=== PATIENT | male | born 1980 | race Caucasian/White ===

== ENCOUNTER → 2020-07-16 15:25 | Outpatient (CLI) | payer OTHER, SELFPAY ==
--- NOTE | 2020-07-16 15:00 | DI.RAD_ITS ---
EXAM: XR HUMERUS LT CLINICAL HISTORY: left biceps tendon rupture TECHNIQUE: COMPARISON: No exams were available for comparison FINDINGS: Two views were obtained. 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 No other significant bony or soft tissue abnormality seen. IMPRESSION: RADIATION DOSE DELIVERED: Total DLP
== END ==
PROVIDERS: Visit Provider Physician Assistant Surgical
DX: D16.02 Benign neoplasm of scapula and long bones of left upper limb (principal); S46.212A Strain of muscle, fascia and tendon of other parts of biceps, left arm, initial encounter
CPT/HCPCS: 73060

== ENCOUNTER 2020-07-17 09:02 | Outpatient (CLI) | payer OTHER, SELFPAY ==
[2020-07-20 12:10] LABS: COVID-19 RT-PCR Result NEGATIVE (Negative)
== END 2020-07-17 09:22 ==
PROVIDERS: Visit Provider Student in an Organized Health Care Education/Training Program
DX: Z11.59 Encounter for screening for other viral diseases (principal); Z01.818 Encounter for other preprocedural examination
CPT/HCPCS: U0003

== ENCOUNTER 2020-07-21 10:29 | Day surgery (SDC) | payer OTHER, SELFPAY ==
[2020-07-21] VITALS (8 sets, daily range): BP systolic 125–161; BP diastolic 83–101; PULSE 67–82; RESP 16–19; TEMP 36–36.5; O2SAT 93–99
[2020-07-21] MEDS: Lactated Ringers 1,000 ML 100 ML IV (11:03)
[2020-07-21] MEDS: Bupivacaine 0.5% Pres-Free 30 ML VIAL ×2 (11:42→13:27)
[2020-07-21] MEDS: Bupivacaine LIPOSOME/PF 133 MG/10 ML VIAL IJ (11:42)
[2020-07-21] MEDS: ceFAZolin 2 GM/50 ML BAG IVPB (12:45)
[2020-07-21] MEDS: EPINEPHrine 1 MG/ML AMP pres-free (13:26)
[2020-07-21] MEDS: Normal Saline 20 ML VIAL (14:56)
--- NOTE | 2020-07-21 15:15 | DI.RAD_ITS ---
EXAM: XR ELBOW LT LIMITED CLINICAL HISTORY: elbow biceps tendon repair TECHNIQUE: 2D and realtime digital imaging was performed. CONTRAST MATERIAL: Refer to procedure report. COMPARISON: No exams were available for comparison FINDINGS: Fluoroscopy was provided for Dr. Field during the performance of a biceps tendon repair. Please ref er to the procedure report for complete details. Fluoro time: 31.9 seconds IMPRESSION: RADIATION DOSE DELIVERED:
--- NOTE | 2020-07-21 15:40 | PDOC.DSDIS_ITS ---
Discharge Plan Disposition Patient Disposition: HOME Condition: Stable Discharge Details Reason For Visit: Left biceps tendon rupture repair Attending Provider: Lloyd Field Primary Care Provider: Unknown,Unknown Hospital Course Hospital Course: Surgery: Left distal biceps tendon repair Home Meds and New Rx's Prescriptions: New naproxen 250 mg tablet 250 - 500 mg PO BID PRN (Reason: Moderate pain or swelling) Qty: 60 RF: 0 aspirin 81 mg tablet,delayed release (DR/EC) 81 mg PO DAILY 14 Days Qty: 14 RF: 0 ondansetron 4 mg tablet,disintegrating 4 mg PO Q6H PRN (Reason: nausea or vomiting) Qty: 5 RF: 0 oxycodone 5 mg tablet 5 - 10 mg PO Q4H PRN (Reason: moderate to severe pain) Qty: 22 RF: 0 cyclobenzaprine 5 mg tablet 5 mg PO TID PRN (Reason: muscle spasm) Qty: 15 RF: 0 Continued diphenhydramine-acetaminophen [Acetaminophen PM] 25-500 mg Tablet 1 - 2 tab PO QHS PRNRF: 0 acetaminophen 500 mg Capsule 1,000 mg PO Q6H PRNRF: 0 Discharge Instructions Additional Instructions: Activity: Non-weightbearing left upper extremity. Keep elbow bent about 90 degrees for the first couple weeks. Sling whenever walking or out of the home. May rest forearm on pillows and remove sling when seated or resting. Recommend elevation to minimize swelling discomfort. Light use of the hand and wrist okay. A physical therapy prescription will be provided separately in the office at follow-up if needed. Progress gently to full range of motion about the elbow after week 3 with goal of full range of motion by the end of week 6. Do not lift anything more than a coffee for 2 months. No strengthening for 3 months. Prescriptions: Aspirin 81 mg take 1 daily to prevent a blood clot for 2 weeks Naproxen 250 mg take 1-2 every 12 hours with a meal as needed for moderate pain Oxycodone 5 mg take 1-2 every 4-6 hours as needed for severe pain Cyclobenzaprine 5 mg take 1 every 8 hours as needed for muscle spasms You may use [id number] Tylenol (acetaminophen) as needed for mild pain. These pain medications may be taken all at once or in different combinations as needed. Also, recommend Colace (docusate) as a stool softener as surgery and pain medicine cause constipation. Dressings: Loosen, adjust, or remove Luis Eduardo compressive as needed. Remove Luis Eduardo bandages and cotton wrap in 3 days. Keep Mepilex Band-Aid in place until follow-up. May shower after 5 days. Gently dry the Mepilex bandage after shower. Follow-up: 10-[address] Field. Please call the office tomorrow to confirm appointment. Let us know right away if you develop any redness, drainage, fevers, chest pain, or trouble breathing. Do not drink alcohol or drive for at least 24 hours after anesthesia. Please call the office during business hours with any questions or concerns. Referrals: Lloyd Field MD [ [facility] STAFF PHYSICIAN] - Discharge Orders Discharge Orders: Discharge Order (Routine); Ordered 07/21/20 Ordered By: Lloyd Field DS: Diagnosis Discharge Diagnosis (1) Traumatic rupture of left distal biceps tendon: Status: Acute
--- NOTE | 2020-07-21 15:58 | W.PM.OP ---
Date of service: 07/21/20 Time of Service: 15:55 Operative Note Operative Note DATE OF PROCEDURE: 07/21/20 PRE-OP DIAGNOSIS: Left distal biceps tendon rupture POST-OP DIAGNOSIS: same PROCEDURE: Left distal biceps tendon repair, CPT# 46881 SURGEON: Lloyd Field SHAREPOINT NET DEVELOPER: Elvin Elizabeth ANESTHESIA: GETA, regional and local ESTIMATED BLOOD LOSS: 15 TOURNIQUET TIME: 0 COMPLICATIONS: None Patient was transported to: PACU Patient's condition: stable Implants: Arthrex distal biceps button Indications: Please see complete medical record for details. Findings: Complete distal biceps tendon rupture with about 6 cm proximal retraction. Significantly degenerated bulbous, and enlarged distal biceps tendon stump. Procedure Description: In the operating room, general anesthesia was induced. The patient was positioned supine on the operating room table. All bony prominences were well-padded. Preoperative antibiotics were administered. The left upper extremity was prepped and draped in the usual sterile fashion. The correct patient, procedure, and side of the procedure were all verified prior to incision. 20 cc of 0.25% bupivacaine containing epinephrine was infiltrated about the planned transverse incision distal to the antecubital fossa as well as over the palpable biceps tendon coiled in the mid anterior arm. Fluoroscopy was used to localize the radial tuberosity. A few centimeters transverse incision was made and careful sharp and blunt dissection was carried down directly to bone centered on the radial tuberosity with the forearm in full supination. Careful hemostasis was achieved with retraction and protection of branching skin nerves. The radial tuberosity was confirmed on fluoroscopy and then cleared of tendon remnant. Attention was then turned to the retracted biceps tendon and the distal anterior arm. The tendon was palpated a few centimeters proximal to the antecubital fossa. Using milking techniques and a blunt tendon grasper, the tendon was delivered out the incision. It was trimmed repaired to fit a 7 mm graft tube. Fiber loop was used to prepare the end the tendon. The spade tipped drill was then placed taking care to drill on the anatomic insertion in hyperpronation. A bicortical tract was made and the reamer placed over the pin and socket reamed in unicortical fashion. The reamer and pin removed. The wound was copiously irrigated of bony material. Appropriate excursion of the tendon was confirmed with the arm flexed about 30 degrees after maintaining steady traction for a brief period. The suture ends were passed through the button and the button inserted and flipped on the far cortex of the radial tuberosity. The tendon was then delivered into the prepared socket maintaining the forearm in full supination and elbow flexed about 30 degrees. A Cisco was used to confirm tendon ends were all loaded into the socket. Suture ends were tensioned, held in the elbow ranged from 90 degrees of flexion full extension. The repair construct was felt to be adequately strong with no tendon distraction from the socket. Suture ends were then final tightened again with the tendon securely docked in the socket. A free needle was used to pass 1 suture through the tendon and then each and and then secured with a knot tie. The repair was again inspected and felt to be strong. The optional interference screw was attempted then omitted given the secure fixation and enlarged tendon size that rather well filled the socket. AP and lateral fluoroscopy confirmed appropriate deployment in position of the button on the far cortex of the bicipital tuberosity. The wound was copiously irrigated normal saline. 1 g of vancomycin powder was distributed deeply and superficially about the wound. The wound was closed using 3-0 Monocryl in a buried under fashion followed by running 3-0 Monocryl subcuticular. Single was applied followed by Mepilex bandage. The radial pulse was bounding easily palpable. Sterile soft roll was wrapped around the elbow and the right upper extremity is gently wrapped in Luis Eduardo bandage and placed into a shoulder immobilizer sling with the elbow bent about 90 degrees. The patient awoke from anesthesia without complication and was transferred to the recovery room in a stable condition.
--- OUTSIDE RECORDS SUMMARY | 2020-07-22 09:12 | XMS_ITS | Clinical Summary ---
:1980 Author Organization [address] Address [address] [address] Phone Care Team Providers Name Role Phone Unavailable Primary Care Provider Unavailable Social History Tobacco Use Types Packs/Day Years Used Date Never Assessed Sex Assigned at Date Recorded Not on file Plan of Treatment Health Maintenance Due Date Last Done Comments HIV screening 1993 Tetanus adult (Td q 10,TDAP once) 1998 Lipid disorder screening 2018 Influenza vaccine 02/29/2020 Insurance Payer Benefit Plan / Subscriber ID Effective Dates Phone Addre ss Type Group [employer] CIGNA [id number] 2009-Present [phone] [address] [place] [address] (Work) [id number] Ashwin Sherwood Personal/Family Self 1980 [address] [phone] [place], [place] (Work) [phone] Ashwin Sherwood Personal/Family Self 1980 [address] [phone] [place], [place] (Work) [id number]
== END 2020-07-21 17:45 | disposition home or self-care (01) ==
LOC: SUR 07-22 09:11 → PDS 07-22 09:12
PROVIDERS: Visit Provider Student in an Organized Health Care Education/Training Program
PROC: (CPT 24341; principal; 2020-07-21 12:00)
DX: S46.212A Strain of muscle, fascia and tendon of other parts of biceps, left arm, initial encounter (principal); X50.0XXA Overexertion from strenuous movement or load, initial encounter; G89.18 Other acute postprocedural pain; Y93.23 Activity, snow (alpine) (downhill) skiing, snowboarding, sledding, tobogganing and snow tubing
CPT/HCPCS: 24342; 76942; 73070; J0171; J0690; J1100; J2405; J2704

== ENCOUNTER 2020-09-22 13:31 | Outpatient (CLI) | payer OTHER, SELFPAY ==
--- NOTE | 2020-09-22 08:30 | DI.RAD_ITS ---
EXAM: XR SHOULDER RT COMPLETE 2+V CLINICAL HISTORY: traumtaic. TECHNIQUE: 2D digital imaging was performed. AP and scapular Y-views were performed. COMPARISON: No exams were available for comparison FINDINGS: BONES: No acute fracture is present. No bony destructive lesion is seen. JOINTS: No dislocation present. SOFT TISSUE: Normal. IMPRESSION: Limited exam. Unremarkable radiographs of the right shoulder. DATA REPOSITORY: RADIATION DOSE DELIVERED:
== END 2020-09-22 13:32 | disposition home or self-care (01) ==
LOC: DIORS 13:31
PROVIDERS: Visit Provider Physician Assistant Surgical
DX: M25.511 Pain in right shoulder (principal); S46.011A Strain of muscle(s) and tendon(s) of the rotator cuff of right shoulder, initial encounter
CPT/HCPCS: 73030